=== PATIENT | female | born 1950 | race Caucasian/White ===

== ENCOUNTER 2019-04-08 17:19 | Inpatient (IN) | payer MEDICARE, MEDICAID ==
[~2019-04-08] VITALS: Ht 167.6 cm; Wt 66.2 kg
[2019-04-08] MEDS ORDERED: SODIUM CHLORIDE 0.9% 1,000 ML IV ONE (18:21)
[2019-04-08] MEDS ORDERED: ASPIRIN 325MG EC TABLET PO ONE (18:30)
[2019-04-08 18:55] LABS: BASOPHILS % 0.3 % (0.0-2.0); EOSINOPHILS % 0.2 % (0.0-5.0); HEMATOCRIT. 33.9 % (36.0-48.0); HEMOGLOBIN. 11.5 g/dL (12.0-16.0); LYMPHOCYTES % 14.4 % (20.0-50.0); MEAN CORPUSCULAR VOLUME 88.5 fL (81.0-99.0); MEAN PLATELET VOLUME 7.9 fl (7.4-10.4); MONOCYTES % 6.5 % (2.0-8.0); NEUTROPHILS % 78.6 % (40.0-76.0); PLATELET 143 x1000/uL (130-400); RED BLOOD CELL COUNT 3.84 mill/uL (4.2-5.4)
[2019-04-08 19:03] LABS: PROTHROMBIN TIME 10.3 sec (9.6-11.0)
[2019-04-08 19:04] LABS: CHLORIDE 108 mEq/L (98-107)
[2019-04-08] MEDS ORDERED: NITROGLYCERIN OINT 1GM/INCH UDPKT TD ONE (19:30)
[2019-04-08 19:38] LABS: CLARITY URINE CLEAR (CLEAR); COLOR URINE YELLOW (YELLOW); KETONES URINE TRACE (NEGATIVE); LEUKOCYTE ESTERASE URINE NEGATIVE (NEGATIVE); NITRITE URINE NEGATIVE (NEGATIVE); OCCULT BLOOD URINE NEGATIVE (NEGATIVE); PH URINE 6.5 (4.5-8.0); PROTEIN URINE NEGATIVE (NEGATIVE); SPECIFIC GRAVITY URINE 1.015 (1.005-1.030)
[2019-04-08] MEDS ORDERED: DOCUSATE SODIUM 100MG CAPSULE PO PRN (22:45)
[2019-04-08] MEDS ORDERED: ONDANSETRON HCL 4MG/2ML INJ IV PRN (22:45)
[2019-04-08] MEDS ORDERED: IPRATROPIUM/ALBUTEROL 0.5-3(2.5)MG/3ML NEB NEB PRN (22:45)
[2019-04-08] MEDS ORDERED: CLONIDINE 0.1MG TABLET PO PRN (22:45)
[2019-04-08] MEDS ORDERED: DEXTROSE 50% WATER 50ML SYRINGE IV PRN (23:00)
[2019-04-08 23:10] VITALS: BP 144/66
[2019-04-08 23:22] VITALS: BP_SYST 127; BP_SYST 144; BP_DIAS 60; BP_DIAS 63
[2019-04-09] MEDS ORDERED: PIOG45TA5 PO (00:07)
[2019-04-09] MEDS ORDERED: FOLI-43 PO (00:07)
[2019-04-09] MEDS ORDERED: LISI40TA4 PO (00:07)
[2019-04-09] MEDS ORDERED: PROT40 PO (00:07)
[2019-04-09] MEDS ORDERED: ATOR40TA70 PO (00:23)
[2019-04-09] MEDS ORDERED: LATA2.5D2 LEFTEYE (00:23)
[2019-04-09] MEDS ORDERED: ALBU18HF2 IH ×2 (00:23)
[2019-04-09] MEDS ORDERED: ERGO2000 PO (00:23)
[2019-04-09] MEDS ORDERED: GLIP5TAB12 PO (00:23)
[2019-04-09] MEDS ORDERED: METF-415 PO (00:23)
[2019-04-09] MEDS ORDERED: BRIM5DRO LEFTEYE (00:23)
[2019-04-09] MEDS ORDERED: BECL10.62 IH (00:23)
[2019-04-09] MEDS ORDERED: TIMO5SOL8 LEFTEYE (00:23)
[2019-04-09] MEDS ORDERED: METH4TAB PO (00:23)
[2019-04-09] MEDS ORDERED: CYCL30DR OP (00:23)
[2019-04-09] MEDS ORDERED: AMLO10TA4 PO (00:23)
[2019-04-09] MEDS ORDERED: METO100T16 PO (00:23)
[2019-04-09] MEDS ORDERED: CALC650T PO (00:23)
[2019-04-09] MEDS ORDERED: METH2.5T PO (00:23)
[2019-04-09] MEDS ORDERED: CEFTRIAXONE 1 G PREMIX 50 ML IV SCH (01:00)
[2019-04-09] MEDS: METHYLPREDNISOLONE SOD SUCC 125 MG/2 ML VIAL IV SCH ×2 (01:23→05:51)
[2019-04-09] MEDS ORDERED: AZITHROMYCIN 500 MG in DEXT 5% WATER 250 ML IV SCH (02:00)
[2019-04-09] MEDS: ACETAMINOPHEN 325MG TABLET PO PRN ×2 (02:50→12:53)
[2019-04-09 04:00] VITALS: BP 115/52
[2019-04-09 06:40] LABS: BASOPHILS % 0.1 % (0.0-2.0); HEMATOCRIT. 33.7 % (36.0-48.0); HEMOGLOBIN. 11.3 g/dL (12.0-16.0); LYMPHOCYTES % 11.4 % (20.0-50.0); MEAN CORPUSCULAR HEMOGLOBIN 29.6 pg (28.0-32.0); MEAN CORPUSCULAR VOLUME 88.3 fL (81.0-99.0); MEAN PLATELET VOLUME 7.8 fl (7.4-10.4); MONOCYTES % 2.1 % (2.0-8.0); NEUTROPHILS % 86.4 % (40.0-76.0); PLATELET 140 x1000/uL (130-400); RED BLOOD CELL COUNT 3.81 mill/uL (4.2-5.4); RED CELL DISTRIBUTION WIDTH 16.1 % (11.6-14.6)
[2019-04-09] MEDS: INSULIN LISPRO 100 UNITS/ML SUBCUT SCH ×4 (06:48→21:04)
[2019-04-09] MEDS: BLOOD SUGAR DIAGNOSTIC STRIP TEST SCH ×4 (06:48→20:59)
[2019-04-09 07:09] LABS: CHLORIDE 112 mEq/L (98-107)
[2019-04-09 07:21] LABS: LDL CHOLESTEROL 73 mg/dL (5-100)
[2019-04-09 07:23] LABS: HDL CHOLESTEROL 42 mg/dL (40-59)
[2019-04-09 08:00] VITALS: BP 126/71
[2019-04-09 09:18] LABS: BG BASE EXCESS -3.2 mmol/L (-2.0-2.0); BG CARBOXYHEMOGLOBIN 0.3 % (0.5-1.5); BG DEOXYHEMOGLOBIN 4.9 % (0.0-5.0); BG FRACTION INSPIRED OXYGEN 21; BG HCO3 ACT 20.9 mmol/L (22.0-26.0); BG METHEMOGLOBIN 0.2 % (0.0-1.5); BG OXYGEN SATURATION 95.1 % (92.0-98.5); BG OXYHEMOGLOBIN 94.6 % (94.0-97.0); BG PCO2 34.3 mmHg (35.0-45.0); BG PH 7.403 (7.350-7.450); BG PO2 75.2 mmHg (75.0-100.0); BG SAMPLE SITE RIGHT BRACHIAL; BG TOTAL HEMOGLOBIN 12.1 g/dL (12.0-18.0); BG VENT MODE ROOM AIR
[2019-04-09 12:00] VITALS: BP 127/55
[2019-04-09] MEDS: AMLODIPINE 10MG TABLET PO SCH (12:42)
[2019-04-09] MEDS: PANTOPRAZOLE 40MG DR TABLET PO SCH (12:43)
[2019-04-09] MEDS: METFORMIN HCL 850MG TABLET PO SCH ×2 (12:43→17:40)
[2019-04-09] MEDS: LISINOPRIL 40MG TABLET PO SCH (12:43)
[2019-04-09] MEDS: METOPROLOL TARTRATE 100MG TABLET PO SCH (12:43)
[2019-04-09] MEDS: GLIPIZIDE 5MG TABLET PO SCH (12:44)
[2019-04-09] MEDS: FOLIC ACID 1MG TABLET PO SCH (12:44)
[2019-04-09] MEDS: PIOGLITAZONE 45MG TABLET PO SCH (14:32)
[2019-04-09 16:00] VITALS: BP 117/56
[2019-04-09] MEDS: ENOXAPARIN 30MG/0.3ML SYR SUBCUT SCH (17:37)
[2019-04-09] MEDS ORDERED: METHYLPREDNISOLONE SOD SUCC 125 MG/2 ML VIAL IV SCH (18:00)
[2019-04-09 20:00] VITALS: BP 115/59
[2019-04-09] MEDS ORDERED: ATORVASTATIN CALCIUM 40MG TABLET PO SCH (21:00)
[2019-04-09] MEDS ORDERED: LATANOPROST 0.005% OPHTH DROPS 2.5ML LEFTEYE SCH (21:00)
[2019-04-09] MEDS: IPRATROPIUM/ALBUTEROL 0.5-3(2.5)MG/3ML NEB NEB SCH (21:07)
[2019-04-09] MEDS: GUAIFENESIN 200MG/10ML SUGAR FREE UDC PO PRN (21:09)
[2019-04-10] VITALS: BP 131/60
[2019-04-10] MEDS: ACETAMINOPHEN 325MG TABLET PO PRN ×2 (00:21→06:26)
[2019-04-10] MEDS ORDERED: CEFTRIAXONE 1 G PREMIX 50 ML IV SCH (01:00)
[2019-04-10] MEDS ORDERED: AZITHROMYCIN 500 MG in DEXT 5% WATER 250 ML IV SCH (02:00)
[2019-04-10] MEDS: IPRATROPIUM/ALBUTEROL 0.5-3(2.5)MG/3ML NEB NEB SCH (02:00)
[2019-04-10 04:00] VITALS: BP 114/40
[2019-04-10] MEDS ORDERED: METHYLPREDNISOLONE SOD SUCC 40 MG/ML VIAL IV SCH (06:00)
[2019-04-10] MEDS: GUAIFENESIN 200MG/10ML SUGAR FREE UDC PO PRN (06:25)
[2019-04-10] MEDS: BLOOD SUGAR DIAGNOSTIC STRIP TEST SCH ×2 (06:27→12:35)
[2019-04-10] MEDS: INSULIN LISPRO 100 UNITS/ML SUBCUT SCH ×2 (06:27→12:50)
[2019-04-10 08:00] VITALS: BP 139/41
[2019-04-10] MEDS: METFORMIN HCL 850MG TABLET PO SCH ×2 (08:17→12:49)
[2019-04-10] MEDS: FOLIC ACID 1MG TABLET PO SCH (09:00)
[2019-04-10] MEDS: METOPROLOL TARTRATE 100MG TABLET PO SCH (09:00)
[2019-04-10] MEDS: GLIPIZIDE 5MG TABLET PO SCH (09:00)
[2019-04-10] MEDS: PIOGLITAZONE 45MG TABLET PO SCH (09:00)
[2019-04-10] MEDS: LISINOPRIL 40MG TABLET PO SCH (09:00)
[2019-04-10] MEDS: AMLODIPINE 10MG TABLET PO SCH (09:00)
[2019-04-10] MEDS: PANTOPRAZOLE 40MG DR TABLET PO SCH (09:00)
[2019-04-10] MEDS: ENOXAPARIN 30MG/0.3ML SYR SUBCUT SCH (09:01)
[2019-04-10 12:00] VITALS: BP 111/52
[2019-04-10 14:09] VITALS: BP 111/52
[2019-04-10] MEDS ORDERED: AZITHROMYCIN 500 MG TABLET PO SCH (21:00)
[2019-04-11] MEDS ORDERED: ENOXAPARIN 40MG/0.4ML SYR SUBCUT SCH (09:00)
[2019-04-11] MEDS ORDERED: FAMOTIDINE 20MG TABLET PO SCH (09:00)
== END 2019-04-10 15:15 | disposition home or self-care (01) | DRG 139 ==
LOC: ER 17:19 → 5WST 20:08 → ENRESERV 21:22 → SUPCPDRO 22:33
PROVIDERS: ADMIT Hospitalist; ATTEND Hospitalist
DX: J18.9 Pneumonia, unspecified organism (principal); J96.00 Acute respiratory failure, unspecified whether with hypoxia or hypercapnia; D64.9 Anemia, unspecified; E11.9 Type 2 diabetes mellitus without complications; I10 Essential (primary) hypertension; I25.10 Atherosclerotic heart disease of native coronary artery without angina pectoris; J20.9 Acute bronchitis, unspecified; J45.909 Unspecified asthma, uncomplicated; M06.9 Rheumatoid arthritis, unspecified; Z90.710 Acquired absence of both cervix and uterus; Z87.891 Personal history of nicotine dependence; Z88.5 Allergy status to narcotic agent; Z88.1 Allergy status to other antibiotic agents; Z79.899 Other long term (current) drug therapy
CPT/HCPCS: 36415; 36600; 71045; 80061; 81003; 82375; 82805; 82962; 83605; 83880; 84484; 93005; 93306; 93970; 94640; 99285; J0456; J0696; J1650; J1815; J2920; J2930; J7030; J7060; J7620

== ENCOUNTER 2021-07-27 13:03 | Emergency (ER) | payer MEDICARE, MEDICAID ==
[~2021-07-27] VITALS: Ht 162.6 cm; Wt 82.0 kg
[~2021-07-27 13:03] MED LIST: ALBU18HF2 IH; AMLO10TA4 PO; ATOR40TA70 PO; BECL10.62 IH; BRIM5DRO LEFTEYE; CALC650T30 PO; CYCL30DR OP; ERGO2000 PO; FOLI-43 PO; GLIP5TAB12 PO; LATA2.5D14 LEFTEYE; LISI40TA13 PO; METF-415 PO; METH2.5T PO; METH4TAB PO; METO100T16 PO; PIOG45TA5 PO; PROT40 PO; TIMO5SOL8 LEFTEYE
[2021-07-27] MEDS ORDERED: ASPIRIN 81MG TABLET PO ONE (13:45)
[2021-07-27] MEDS ORDERED: ONDANSETRON HCL 4MG/2ML INJ IV ONE (13:45)
[2021-07-27 14:32] LABS: HEMATOCRIT. 39.2 % (36.0-48.0); HEMOGLOBIN. 12.6 g/dL (12.0-16.0); MEAN CORPUSCULAR HEMOGLOBIN 27.2 pg (28.0-32.0); MEAN CORPUSCULAR VOLUME 84.6 fL (81.0-99.0); MEAN PLATELET VOLUME 8.1 fl (7.4-10.4); PLATELET 121 x1000/uL (130-400); RED BLOOD CELL COUNT 4.63 mill/uL (4.2-5.4); RED CELL DISTRIBUTION WIDTH 14.1 % (11.6-14.6)
[2021-07-27 14:38] LABS: CHLORIDE 103 mEq/L (98-107)
[2021-07-27 15:29] LABS: PLATELET ESTIMATE DECREASED
[2021-07-27] MEDS ORDERED: KCL 10MEQ/50ML PREMIX 50 ML IV ONE (16:00)
[2021-07-27] MEDS ORDERED: MAGNESIUM 1 G PREMIX 100 ML IV ONE (16:00)
[2021-07-27] MEDS ORDERED: POTASSIUM CHLORIDE 20MEQ TABLET SR PO ONE (16:00)
[2021-07-27 19:28] VITALS: BP 145/70
== END 2021-07-27 19:31 | disposition home or self-care (01) ==
LOC: ER 13:03
DX: R07.9 Chest pain, unspecified (principal); R05.9 Cough, unspecified; R11.2 Nausea with vomiting, unspecified; J45.909 Unspecified asthma, uncomplicated; E11.9 Type 2 diabetes mellitus without complications; I25.10 Atherosclerotic heart disease of native coronary artery without angina pectoris; Z98.890 Other specified postprocedural states; Z90.710 Acquired absence of both cervix and uterus; Z79.899 Other long term (current) drug therapy; Z88.8 Allergy status to other drugs, medicaments and biological substances; Z88.6 Allergy status to analgesic agent; Z20.822 Contact with and (suspected) exposure to COVID-19
CPT/HCPCS: 36415; 71045; 80053; 83880; 84484; 85025; 87426; 93005; 96361; 96365; 96375; 99285; J2405; J3475; J3480